=== PATIENT | female | born 1990 | race Two or more races ===

== ENCOUNTER 2023-01-27 22:16 | Emergency (ER) | payer MEDICAID, OTHER ==
[~2023-01-27] VITALS: Ht 162.6 cm; Wt 56.2 kg
[2023-01-27] MEDS ORDERED: IBUPROFEN 600 MG TABLET PO ONE (23:30)
[2023-01-27] MEDS ORDERED: IBUPROFEN 600 MG TABLET ONE (23:31)
[2023-01-28] MEDS ORDERED: BENZ200C53 PO (01:22)
[2023-01-28] MEDS ORDERED: ALBU18HF2 INH (01:22)
[2023-01-28 01:30] VITALS: BP 132/76
--- NOTE | 2023-01-28 01:30 | NUR ---
Patient discharged to home in stable condition. Written and verbal after care instructions given. Patient verbalizes understanding of instruction.
== END 2023-01-28 01:31 | disposition home or self-care (01) ==
LOC: ER 22:18
DX: R05.9 Cough, unspecified (principal)
CPT/HCPCS: 71045-TC